=== PATIENT | female | born 1955 | race Two or more races ===

== ENCOUNTER 2018-06-01 12:39 | Emergency (ER) | payer MEDICAID, OTHER ==
[~2018-06-01] VITALS: Ht 152.4 cm; Wt 63.5 kg
[2018-06-01] MEDS ORDERED: UNOBMED (12:54)
[2018-06-01 13:05] VITALS: BP 147/79
[2018-06-01] MEDS ORDERED: Aspirin Baby 81mg ORAL ONE (13:15)
[2018-06-01] MEDS ORDERED: Nitroglycerin Subl 0.4mg tab SL PRN (13:15)
[2018-06-01] MEDS ORDERED: Metoprolol 25mg tab ORAL ONE (13:15)
[2018-06-01 13:39] LABS: EOSINOPHILS % (AUTO) 0.5 % (0.0-3.0); HEMATOCRIT 43.5 % (37.0-47.0); LYMPHOCYTES % (AUTO) 22.7 % (20.0-45.0); MEAN CORPUSCULAR VOLUME 90 FL (80-99); MONOCYTES % (AUTO) 4.8 % (1.0-10.0); NEUTROPHILS % (AUTO) 70.9 % (45.0-75.0); PLATELET COUNT 147 K/UL (150-450); RED BLOOD COUNT 4.86 M/UL (4.20-5.40); RED CELL DISTRIBUTION WIDTH 10.4 % (11.6-14.8); WHITE BLOOD COUNT 7.6 K/UL (4.8-10.8)
[2018-06-01 13:53] VITALS: BP 128/71
[2018-06-01 14:10] LABS: ANION GAP 11 mmol/L (5-15); BLOOD UREA NITROGEN 12 mg/dL (7-18); CALCIUM 8.6 MG/DL (8.5-10.1); CARBON DIOXIDE 24 MMOL/L (21-32); CHLORIDE 100 MMOL/L (98-107); CREATININE 0.9 MG/DL (0.55-1.30); POTASSIUM 3.7 MMOL/L (3.5-5.1); SODIUM 135 MMOL/L (136-145)
[2018-06-01 14:18] LABS: ALANINE AMINOTRANSFERASE 21 U/L (12-78); ALBUMIN 3.9 G/DL (3.4-5.0); ALKALINE PHOSPHATASE 73 U/L (46-116); ASPARTATE AMINO TRANSFERASE 17 U/L (15-37); BILIRUBIN,TOTAL 0.4 MG/DL (0.2-1.0)
--- NOTE | 2018-06-01 14:18 | Diagnostic Imaging Report ---
Indication: Dyspnea Technique: One view of the chest Comparison: none Findings: Lungs and pleural spaces are clear. The heart size is normal. Impression: Negative
[2018-06-01 15:53] VITALS: BP 113/71
--- NOTE | 2018-06-01 16:23 | Emergency Room Report ---
History of Present Illness General Chief Complaint: Dizziness Source: Patient Present Illness HPI Mrs. Chi is a pleasant 62-year-old female with history of hypertension and elevated triglycerides who presents with a one week of lightheadedness left arm numbness. Chest pain and dyspnea developed today. Chest feels heavy moderate severity. . She took baby aspirin today. She previously had been taking amlodipine for hypertension. However after change in diet, her PCP has discontinued this medication. She is unable to recall if she's had previous cardiac evaluation. Allergies: Coded Allergies: No Known Allergies (Unverified , 06/01/18) Patient History Limited by: language barrier - by nursing colleague provided Danish interpretation Past Medical History: HTN, other - elevated triglycerides Pertinent Family History: CVA - mother Social History: Denies: smoking, alcohol use, drug use Social History Narrative lives with family, patient is , patient cleans houses for living Last Menstrual Period: menopause Nursing Documentation-[facility] Hx Hypertension: Yes Review of Systems Constitutional: Reports: malaise; Denies: fever, weakness Neurological: Reports: numbness, paresthesia, tingling; Denies: headache, focal weakness All Other Systems: negative except mentioned in HPI Physical Exam Vital Signs Date Time Temp Pulse Resp B/P (MAP) Pulse Ox O2 Delivery O2 Flow Rate FiO2 06/01/18 12:51 98.6 78 18 176/84 95 Room Air 98.6 Sp02 EP Interpretation: reviewed, normal General Appearance: no apparent distress, alert, GCS 15, non-toxic Head: normocephalic, atraumatic Eyes: bilateral eye normal inspection, bilateral eye PERRL ENT: hearing grossly normal, normal pharynx, no angioedema, normal voice Neck: full range of motion, supple/symm/no masses Respiratory: chest non-tender, lungs clear, normal breath sounds, speaking full sentences Cardiovascular #1: regular rate, rhythm, no edema Cardiovascular #2: 2+ carotid (R), 2+ carotid (L), 2+ radial (R), 2+ radial (L) , 2+ dorsalis pedis (R), 2+ dorsalis pedis (L) Gastrointestinal: normal bowel sounds, non tender, soft, non-distended, no guarding, no rebound Rectal: deferred Musculoskeletal: back normal, gait/station normal, normal range of motion, non- tender Neurologic: alert, oriented x3, responsive, motor strength/tone normal, sensory intact, speech normal Psychiatric: judgement/insight normal, memory normal, mood/affect normal Skin: normal color, no rash, warm/dry, well hydrated Medical Decision Making ER Course Mrs. Chi presents with signs and symptoms of acute coronary syndrome and hypertensive urgency.. I'm concerned for cardiac disease. Our case briefer consulted patient's health insurance claims clerk who arranged MD to MD consultation at [facility]. Patient will be admitted to telemetry at [facility]. Transferred in stable condition. Patient is appropriate for transfer. Patient and daughter agreed for transfer and understand risks alternatives and benefits. I spoke with accepting physician Dr. Malik, Labs Test 06/01/18 13:15 White Blood Count 7.6 K/UL (4.8-10.8) Red Blood Count 4.86 M/UL (4.20-5.40) Hemoglobin 15.0 G/DL (12.0-16.0) Hematocrit 43.5 % (37.0-47.0) Mean Corpuscular Volume 90 FL (80-99) Mean Corpuscular Hemoglobin 30.9 PG (27.0-31.0) Mean Corpuscular Hemoglobin Concent 34.5 G/DL (32.0-36.0) Red Cell Distribution Width 10.4 % (11.6-14.8) Platelet Count 147 K/UL (150-450) Mean Platelet Volume 11.3 FL (6.5-10.1) Neutrophils (%) (Auto) 70.9 % (45.0-75.0) Lymphocytes (%) (Auto) 22.7 % (20.0-45.0) Monocytes (%) (Auto) 4.8 % (1.0-10.0) Eosinophils (%) (Auto) 0.5 % (0.0-3.0) Basophils (%) (Auto) 1.0 % (0.0-2.0) Sodium Level 135 MMOL/L (136-145) Potassium Level 3.7 MMOL/L (3.5-5.1) Chloride Level 100 MMOL/L (98-107) Carbon Dioxide Level 24 MMOL/L (21-32) Anion Gap 11 mmol/L (5-15) Blood Urea Nitrogen 12 mg/dL (7-18) Creatinine 0.9 MG/DL (0.55-1.30) Estimat Glomerular Filtration Rate > 60 mL/min (>60) Glucose Level 115 MG/DL (74-106) Calcium Level 8.6 MG/DL (8.5-10.1) Total Bilirubin 0.4 MG/DL (0.2-1.0) Aspartate Amino Transf (AST/SGOT) 17 U/L (15-37) Alanine Aminotransferase (ALT/SGPT) 21 U/L (12-78) Alkaline Phosphatase 73 U/L (46-116) Troponin I 0.017 ng/mL (0.000-0.056) Pro-B-Type Natriuretic Peptide 72 pg/mL (0-125) Total Protein 8.0 G/DL (6.4-8.2) Albumin 3.9 G/DL (3.4-5.0) Globulin 4.1 g/dL Albumin/Globulin Ratio 1.0 (1.0-2.7) Lab Results Impression labs are within normal limits EKG Diagnostic Results EP Interpretation: rate 70 beats, normalaxis normal intervals no ST-T signs of ischemia Rate: normal Rhythm: NSR ST Segments: no acute changes ASA given to the pt in ED: Yes Chest X-Ray Diagnostic Results Chest X-Ray Diagnostic Results : Chest X-Ray Ordered: Yes # of Views/Limited/Complete: 1 View Indication: Chest Pain Interpretation: no consolidation, no effusion, no pneumothorax, no acute cardiopulmonary disease Electronically Signed by: this image is electronically signed by Dr. Arvizu Last Vital Signs Date Time Temp Pulse Resp B/P (MAP) Pulse Ox O2 Delivery O2 Flow Rate FiO2 06/01/18 15:53 98.6 73 13 113/71 98 Room Air 98.6 Referrals: NON PHYSICIAN (PCP) GWEN SPAIN Jun 01, 2018 16:23
[2018-06-01 17:33] VITALS: BP 126/74
[2018-06-01 18:00] VITALS: BP 126/74
--- NOTE | 2018-06-02 13:36 | Cardiology Report ---
APPROVED REPORT EKG Measurement Heart [id number] Normal sinus rhythm Normal ECG
== END 2018-06-01 18:00 | disposition short-term general hospital (02) ==
LOC: EMR 13:33 → ENRESERV 14:55 → EMR 18:00
DX: R07.9 Chest pain, unspecified (principal); R42 Dizziness and giddiness; R20.0 Anesthesia of skin; I10 Essential (primary) hypertension; Z82.3 Family history of stroke
CPT/HCPCS: 36415; 71045; 80053; 83880; 84484; 85025; 93005; 99284

== ENCOUNTER 2018-11-27 08:43 | Emergency (ER) | payer OTHER ==
[~2018-11-27] VITALS: Ht 154.9 cm; Wt 63.5 kg
[~2018-11-27 08:43] MED LIST: UNOBMED
--- NOTE | 2018-11-27 08:52 | NUR ---
ED Nurse Note: waiting for pt's daughter to send the pt's medication list
[2018-11-27 09:00] VITALS: BP 135/70
--- NOTE | 2018-11-27 09:00 | NUR ---
ED Nurse Note: Pt present at ER from home with daughter. Cameroonian speaker but is able to make a need in Thai and daugther speakes Thai. pt aao x4 and reported non-radiating abdominal pain 05/02. per pt, pt started having N/V/D since but it got worse this morning. last time vomit was . Diarrhea and Nausea is still going on. skin clean and intact. no vomiting or diarrhea since arrival at ER.
[2018-11-27 09:31] LABS: APPEARANCE,URINE CLEAR; BILIRUBIN, URINE NEGATIVE (NEGATIVE); COLOR,URINE PALE YELLOW; GLUCOSE, URINE (UA) NEGATIVE (NEGATIVE); KETONES,URINE NEGATIVE (NEGATIVE); LEUKOCYTE ESTERASE ,URINE NEGATIVE (NEGATIVE); NITRITE,URINE NEGATIVE (NEGATIVE); PH,URINE 7 (4.5-8.0); PROTEIN,URINE NEGATIVE (NEGATIVE); UROBILINOGEN,URINE NORMAL MG/DL (0.0-1.0)
[2018-11-27 09:45] LABS: BASOPHILS % (AUTO) 0.9 % (0.0-2.0); EOSINOPHILS % (AUTO) 1.4 % (0.0-3.0); HEMATOCRIT 42.9 % (37.0-47.0); LYMPHOCYTES % (AUTO) 30.8 % (20.0-45.0); MEAN CORPUSCULAR VOLUME 92 FL (80-99); MONOCYTES % (AUTO) 4.5 % (1.0-10.0); NEUTROPHILS % (AUTO) 62.4 % (45.0-75.0); PLATELET COUNT 122 K/UL (150-450); RED BLOOD COUNT 4.68 M/UL (4.20-5.40)
[2018-11-27] MEDS ORDERED: Sodium Chloride 1,900 ML IVLG ONE (09:45)
[2018-11-27] MEDS ORDERED: Isovue-300 100ml vial INJ PRN (09:45)
--- NOTE | 2018-11-27 09:50 | Emergency Room Report ---
History of Present Illness General Chief Complaint: Abdominal Pain Source: Patient Present Illness HPI This patient is accompanied by her daughter. The patient states that 5 days ago she developed nausea, vomiting and diarrhea. She is continued to have diarrhea for the past 5 days. She has had nausea but denies any further vomiting. She also complains of generalized weakness and fatigue. She also complains of epigastric and mid abdominal pain. She denies fever or chills. She denies cough or congestion. She denies dysuria or hematuria. She denies travel out of the country. She denies bloody stool. She has no other complaints. Allergies: Coded Allergies: No Known Allergies (Unverified , 11/27/18) Patient History Past Medical History: see triage record, HTN, other - vertigo, HLP Social History: Denies: smoking, alcohol use, drug use Reviewed Nursing Documentation: PMH: Agreed; PSxH: Agreed Nursing Documentation-PM Past Medical History: No History, Except For Hx Hypertension: Yes Review of Systems All Other Systems: negative except mentioned in HPI Physical Exam Vital Signs Date Time Temp Pulse Resp B/P (MAP) Pulse Ox O2 Delivery O2 Flow Rate FiO2 11/27/18 08:48 98.2 79 16 161/75 97 Room Air 11/27/18 09:00 100 Sp02 EP Interpretation: reviewed, normal General Appearance: no apparent distress, alert, GCS 15, non-toxic Head: normocephalic, atraumatic Eyes: bilateral eye normal inspection, bilateral eye PERRL ENT: hearing grossly normal, normal pharynx, no angioedema, normal voice Neck: full range of motion, supple/symm/no masses Respiratory: chest non-tender, lungs clear, normal breath sounds, no respiratory distress, no retraction, no accessory muscle use, speaking full sentences Cardiovascular #1: regular rate, rhythm, no edema Gastrointestinal: normal bowel sounds, soft, non-distended, no guarding, no rebound, tenderness - TTP in the epigastrium, RUQ and LUQ Rectal: deferred Musculoskeletal: back normal, gait/station normal, normal range of motion, non- tender Neurologic: alert, oriented x3, responsive, motor strength/tone normal, sensory intact, speech normal Psychiatric: judgement/insight normal, memory normal, mood/affect normal, no suicidal/homicidal ideation Skin: normal color, no rash, warm/dry, well hydrated Medical Decision Making Diagnostic Impression: Primary Impression: Gastroenteritis ER Course This patient has a clinical presentation consistent with gastroenteritis/ gastritis. The patient's abdominal exam was benign, but given the patient's age I did obtain a CT of the abdomen and pelvis which showed no acute findings. I do not suspect cholecystitis, pancreatitis, appendicitis or diverticulitis based on history and physical, CT findings and laboratory workup. This is likely viral in etiology. The patient is nontoxic and nonsurgical at this time. Patient was given IV fluids, nausea medication and IV pepcid to treat gastritis. The patient was given return precautions and followup instructions. Laboratory Tests Test 11/27/18 09:11 White Blood Count 6.0 K/UL (4.8-10.8) Red Blood Count 4.68 M/UL (4.20-5.40) Hemoglobin 15.0 G/DL (12.0-16.0) Hematocrit 42.9 % (37.0-47.0) Mean Corpuscular Volume 92 FL (80-99) Mean Corpuscular Hemoglobin 32.1 PG (27.0-31.0) H Mean Corpuscular Hemoglobin Concent 35.0 G/DL (32.0-36.0) Red Cell Distribution Width 11.0 % (11.6-14.8) L Platelet Count 122 K/UL (150-450) L Mean Platelet Volume 11.0 FL (6.5-10.1) H Neutrophils (%) (Auto) 62.4 % (45.0-75.0) Lymphocytes (%) (Auto) 30.8 % (20.0-45.0) Monocytes (%) (Auto) 4.5 % (1.0-10.0) Eosinophils (%) (Auto) 1.4 % (0.0-3.0) Basophils (%) (Auto) 0.9 % (0.0-2.0) Urine Color Pale yellow Urine Appearance Clear Urine pH 7 (4.5-8.0) Urine Specific [place] 1.005 (1.005-1.035) Urine Protein Negative (NEGATIVE) Urine Glucose (UA) Negative (NEGATIVE) Urine Ketones Negative (NEGATIVE) Urine Blood Negative (NEGATIVE) Urine Nitrite Negative (NEGATIVE) Urine Bilirubin Negative (NEGATIVE) Urine Urobilinogen Normal MG/DL (0.0-1.0) Urine Leukocyte Esterase Negative (NEGATIVE) Sodium Level 142 MMOL/L (136-145) Potassium Level 3.7 MMOL/L (3.5-5.1) Chloride Level 105 MMOL/L (98-107) Carbon Dioxide Level 27 MMOL/L (21-32) Anion Gap 10 mmol/L (5-15) Blood Urea Nitrogen 14 mg/dL (7-18) Creatinine 0.9 MG/DL (0.55-1.30) Estimate Glomerular Filtration Rate > 60 mL/min (>60) Glucose Level 105 MG/DL (74-106) Calcium Level 9.2 MG/DL (8.5-10.1) Total Bilirubin 0.4 MG/DL (0.2-1.0) Aspartate Amino Transferase (AST) 17 U/L (15-37) Alanine Aminotransferase (ALT) 25 U/L (12-78) Alkaline Phosphatase 82 U/L (46-116) Troponin I 0.006 ng/mL (0.000-0.056) Total Protein 7.8 G/DL (6.4-8.2) Albumin 3.9 G/DL (3.4-5.0) Globulin 3.9 g/dL Albumin/Globulin Ratio 1.0 (1.0-2.7) Lipase 104 U/L (73-393) EKG Diagnostic Results Rate: normal ST Segments: no acute changes Rhythm Strip Diag. Results EP Interpretation: yes Rate: 70's Rhythm: NSR, no PVC's, no ectopy CT/MRI/US Diagnostic Results CT/MRI/US Diagnostic Results : Imaging Test Ordered: CT abd/pelvis Impression See official report and electronic medical record. No acute findings. Normal appendix. Last Vital Signs Date Time Temp Pulse Resp B/P (MAP) Pulse Ox O2 Delivery O2 Flow Rate FiO2 11/27/18 09:00 70 17 Room Air 100 11/27/18 09:00 98.2 135/70 100 Status: improved Disposition: HOME, SELF-CARE Condition: Improved Referrals: [facility],REFERR[facility] (PCP) Patient Instructions: Abdominal Pain, Adult Hannah Dunn DO Nov 27, 2018 09:50
[2018-11-27 09:51] LABS: ANION GAP 10 mmol/L (5-15); BLOOD UREA NITROGEN 14 mg/dL (7-18); CALCIUM 9.2 MG/DL (8.5-10.1); CARBON DIOXIDE 27 MMOL/L (21-32); CHLORIDE 105 MMOL/L (98-107); CREATININE 0.9 MG/DL (0.55-1.30); POTASSIUM 3.7 MMOL/L (3.5-5.1); SODIUM 142 MMOL/L (136-145)
[2018-11-27 09:56] LABS: ALANINE AMINOTRANSFERASE 25 U/L (12-78); ALBUMIN 3.9 G/DL (3.4-5.0); ALKALINE PHOSPHATASE 82 U/L (46-116); ASPARTATE AMINO TRANSFERASE 17 U/L (15-37); BILIRUBIN,TOTAL 0.4 MG/DL (0.2-1.0)
--- NOTE | 2018-11-27 10:00 | NUR ---
ED Nurse Note: pt reported that she is allergic to shrimp. md made aware and received verbal order to still do CT with contrast. family informed and agreed with it.
--- NOTE | 2018-11-27 10:55 | Diagnostic Imaging Report ---
Indication: Abdominal pain Technique: Continuous helical transaxial imaging of the abdomen and pelvis was obtained from the lung bases to the pubic symphysis during intravenous contrast administration. Coronal 2-D reformats were also obtained. Study obtained in a Siemens sensation [address] Automatic Exposure Control was utilized. Total Dose length Product (DLP): 714.[address] Dose Index Volume (CTDIvol): 15.03 mGy Comparison: None Findings: Lung bases are clear. Small hiatal hernia noted. Gallbladder is unremarkable. The spleen and liver, pancreas and kidneys are unremarkable. No free fluid identified. Appendix is normal. No evidence of bowel obstruction. Uterus is absent. Urinary bladder is unremarkable. There is narrowing of intervertebral discs and accompanying endplate osteophyte formation especially L4-5. Hypertrophied facet joints also demonstrated.. IMPRESSION: No acute findings. Normal appendix. Status post hysterectomy Degenerative disc disease at L4-[address] scanner at [facility] is accredited by the [employer] and the scans are performed using dose optimization techniques as appropriate to a performed exam including Automatic Exposure control.
--- NOTE | 2018-11-27 10:56 | NUR ---
ED Nurse Note: pt ambulated to bathroom with RN's assist for urination and came back in stable condition.
[2018-11-27] MEDS ORDERED: MAALOX MAXIMUM355 M1 PO (11:12)
[2018-11-27] MEDS ORDERED: PEPCID AC20 M2 PO (11:12)
[2018-11-27 11:25] VITALS: BP 107/77
--- NOTE | 2018-11-27 11:27 | NUR ---
ED Nurse Note: pt was cleared to be discharged by ERMD. pt and her daughter at bedside received prescriptions and discharge instruction and verbalized understanding. pt ambulated to be discharged. id band and iv were removed.
--- NOTE | 2018-11-28 13:46 | Cardiology Report ---
APPROVED REPORT EKG Measurement Heart [id number] [place] [id number] [id number] Normal sinus rhythm Normal ECG
== END 2018-11-27 11:28 | disposition home or self-care (01) ==
LOC: EMR 09:31
DX: K52.9 Noninfective gastroenteritis and colitis, unspecified (principal); I10 Essential (primary) hypertension
CPT/HCPCS: 36415; 74177; 80053; 81003; 83690; 84484; 85025; 93005; 96361; 96374; 99284; J2405; Q9967

== ENCOUNTER 2019-08-02 11:35 | Emergency (ER) | payer OTHER ==
[~2019-08-02] VITALS: Ht 157.5 cm; Wt 63.5 kg
[~2019-08-02 11:35] MED LIST changes: +MAALOX MAXIMUM355 M1 PO; +PEPCID AC20 M2 PO
[2019-08-02] MEDS ORDERED: HYDROCHLOROTH12.5 M2 ORAL (11:45)
[2019-08-02] MEDS ORDERED: VERTICALM25 MG ORAL (11:45)
[2019-08-02 11:50] VITALS: BP 143/83
--- NOTE | 2019-08-02 11:50 | NUR ---
Note undone in EDM - 08/02/19 at 1253 by BPARENTELA ED Nurse Note: Pt walked in ED c/o of headache 8/10 on pain scale since yesterday 1100am. BP 143/73. C/O of nausea and dizziness but no vomitting. Placed patient on cardiac rehab nurse. Daughter at bedside.
--- NOTE | 2019-08-02 11:50 | NUR ---
ED Nurse Note: Pt walked in ED c/o of headache 8/10 on pain scale since yesterday 1100am. BP 143/73. C/O of nausea and dizziness but no vomitting. patient reports her pain "all around her head" patient denies any blurred vision at this time, patient is accomapnied by her daughter, denies any nausea or vomiting. patient placed in a monitor worker, IV started on left hand 18 gauge and right hand 20 gauge, will continue to monitor
[2019-08-02] MEDS ORDERED: Metoclopramide 10mg/2ml Inj IVP ONE (12:15)
[2019-08-02] MEDS ORDERED: DiphenhydrAMINE 50mg/ml Inj IVP ONE (12:15)
[2019-08-02] MEDS ORDERED: Ketorolac 30mg Inj IV ONE (12:15)
[2019-08-02 13:13] LABS: BASOPHILS % (AUTO) 0.8 % (0.0-2.0); EOSINOPHILS % (AUTO) 0.2 % (0.0-3.0); HEMATOCRIT 43.9 % (37.0-47.0); HEMOGLOBIN 15.4 G/DL (12.0-16.0); MEAN CORPUSCULAR VOLUME 90 FL (80-99); MONOCYTES % (AUTO) 6.5 % (1.0-10.0); NEUTROPHILS % (AUTO) 62.5 % (45.0-75.0); PLATELET COUNT 165 K/UL (150-450); RED BLOOD COUNT 4.87 M/UL (4.20-5.40); RED CELL DISTRIBUTION WIDTH 10.5 % (11.6-14.8); WHITE BLOOD COUNT 7.1 K/UL (4.8-10.8)
[2019-08-02 13:25] LABS: ANION GAP 8 mmol/L (5-15); BLOOD UREA NITROGEN 13 mg/dL (7-18); CALCIUM 9.1 MG/DL (8.5-10.1); CARBON DIOXIDE 28 MMOL/L (21-32); CHLORIDE 101 MMOL/L (98-107); CREATININE 0.7 MG/DL (0.55-1.30); POTASSIUM 3.3 MMOL/L (3.5-5.1); SODIUM 137 MMOL/L (136-145)
--- NOTE | 2019-08-02 13:30 | NUR ---
ED Nurse Note: Patient on gurney. No signs of distress noted. Family at bedside.
[2019-08-02 13:39] LABS: ALANINE AMINOTRANSFERASE 22 U/L (12-78); ALBUMIN 3.8 G/DL (3.4-5.0); ALBUMIN/GLOBULIN RATIO 0.9 (1.0-2.7); ALKALINE PHOSPHATASE 86 U/L (46-116); ASPARTATE AMINO TRANSFERASE 19 U/L (15-37); BILIRUBIN,TOTAL 0.4 MG/DL (0.2-1.0); CKMB < 0.5 NG/ML (0.0-3.6); CREATINE KINASE 53 U/L (26-308)
--- NOTE | 2019-08-02 14:42 | Emergency Room Report ---
History of Present Illness General Chief Complaint: Headache Source: Patient Present Illness HPI Patient presents emergency department today complaint of a headache. Patient states that she developed the onset of headache since yesterday with worsening pain on the left side of face associate some numbness and tearing of the left eye. She denies any shortness of breath. Patient reports prior CVA work-up that was negative. Symptoms noted to be moderate. No other modifying factors. No other associated signs and symptoms. No other complaints were noted. Allergies: Coded Allergies: No Known Allergies (Unverified , 11/27/18) Patient History Past Medical History: HTN Past Surgical History: none Pertinent Family History: none Social History: Denies: smoking, alcohol use, drug use Last Menstrual Period: 15 YEARS AGO Now: No Reviewed Nursing Documentation: PMH: Agreed; PSxH: Agreed Nursing Documentation-PMH Past Medical History: No History, Except For Hx Hypertension: Yes Review of Systems All Other Systems: negative except mentioned in HPI Physical Exam Vital Signs Date Time Temp Pulse Resp B/P (MAP) Pulse Ox O2 Delivery O2 Flow Rate FiO2 08/02/19 11:40 99.0 80 16 153/77 (102) 97 Room Air Sp02 EP Interpretation: reviewed, normal General Appearance: normal inspection, well appearing, no apparent distress, alert Head: atraumatic Eyes: bilateral eye normal inspection ENT: normal ENT inspection, hearing grossly normal, normal voice Neck: normal inspection, full range of motion, supple, no bony tend Respiratory: normal inspection, lungs clear, normal breath sounds, no respiratory distress, no retraction, no wheezing Cardiovascular #1: regular rate, rhythm, no edema Gastrointestinal: normal inspection, normal bowel sounds, non tender, soft, no guarding, no hernia Genitourinary: no CVA tenderness Musculoskeletal: normal inspection, back normal, normal range of motion Neurologic: normal inspection, alert, responsive, speech normal Psychiatric: normal inspection, judgement/insight normal, mood/affect normal Skin: no rash Medical Decision Making Diagnostic Impression: Primary Impression: Dizziness ER Course Patient presents emergency department today complaining headache. Differential considerations include CVA, migraine headache, electrolyte abnormality just name few. Given the severity of the patient's presentation I felt this is a highly complex patient. This patient required extensive workup. Patient laboratory work-up is negative. But given patient's risk factors and history of CVA worsening dizziness patient require head CT which is noted to be negative. Patient was given medications fluids and felt much better. Given the patient feels much better, and he had a negative workup, I feel the patient can be discharged home. Patient is advised to follow up with primary doctor in 2-3 days and return the emergency room for any worsening symptoms and as needed. Labs Test 08/02/19 12:20 White Blood Count 7.1 K/UL (4.8-10.8) Red Blood Count 4.87 M/UL (4.20-5.40) Hemoglobin 15.4 G/DL (12.0-16.0) Hematocrit 43.9 % (37.0-47.0) Mean Corpuscular Volume 90 FL (80-99) Mean Corpuscular Hemoglobin 31.5 PG (27.0-31.0) Mean Corpuscular Hemoglobin Concent 35.0 G/DL (32.0-36.0) Red Cell Distribution Width 10.5 % (11.6-14.8) Platelet Count 165 K/UL (150-450) Mean Platelet Volume 9.1 FL (6.5-10.1) Neutrophils (%) (Auto) 62.5 % (45.0-75.0) Lymphocytes (%) (Auto) 30.0 % (20.0-45.0) Monocytes (%) (Auto) 6.5 % (1.0-10.0) Eosinophils (%) (Auto) 0.2 % (0.0-3.0) Basophils (%) (Auto) 0.8 % (0.0-2.0) Sodium Level 137 MMOL/L (136-145) Potassium Level 3.3 MMOL/L (3.5-5.1) Chloride Level 101 MMOL/L (98-107) Carbon Dioxide Level 28 MMOL/L (21-32) Anion Gap 8 mmol/L (5-15) Blood Urea Nitrogen 13 mg/dL (7-18) Creatinine 0.7 MG/DL (0.55-1.30) Estimat Glomerular Filtration Rate > 60 mL/min (>60) Glucose Level 95 MG/DL (74-106) Calcium Level 9.1 MG/DL (8.5-10.1) Total Bilirubin 0.4 MG/DL (0.2-1.0) Aspartate Amino Transf (AST/SGOT) 19 U/L (15-37) Alanine Aminotransferase (ALT/SGPT) 22 U/L (12-78) Alkaline Phosphatase 86 U/L (46-116) Total Creatine Kinase 53 U/L (26-308) Creatine Kinase MB < 0.5 NG/ML (0.0-3.6) Creatine Kinase MB Relative Index 0.9 Troponin I 0.000 ng/mL (0.000-0.056) Total Protein 8.1 G/DL (6.4-8.2) Albumin 3.8 G/DL (3.4-5.0) Globulin 4.3 g/dL Albumin/Globulin Ratio 0.9 (1.0-2.7) EKG Diagnostic Results Rate: normal Rhythm: NSR ST Segments: no acute changes Rhythm Strip Diag. Results EP Interpretation: yes Rate: 76 Rhythm: NSR, no PVC's, no ectopy Last Vital Signs Date Time Temp Pulse Resp B/P (MAP) Pulse Ox O2 Delivery O2 Flow Rate FiO2 08/02/19 11:50 98.3 73 18 143/83 98 Room Air Status: improved Disposition: HOME, SELF-CARE Condition: Stable Referrals: [facility],REFERR[facility] (PCP) Alexander Jenkins MD Aug 02, 2019 14:42
--- NOTE | 2019-08-02 14:49 | Diagnostic Imaging Report ---
Indications: Headache 8 out of 10 Technique: Spiral acquisitions obtained through the brain. Angled axial and coronal 5 x 5 mm slices were reconstructed. Total dose length product 1244 mGycm. CTDI vol(s) 60 mGy. Dose reduction achieved using automated exposure control Comparison: 08/02/2019 Findings: Images are limited due to images noise. No acute intracranial hemorrhage or edema, mass effect, nor midline shift. There is mild periventricular deep white matter low-attenuation, consistent with chronic microvascular ischemic change Normal randolph-white differentiation. Intact calvarium. The mastoids are clear. Visualized orbits and sinuses are unremarkable. Impression: Mild involutional changes, as described Negative for acute intracranial bleed or mass effect The CT scanner at [facility] is accredited by the [employer] and the scans are performed using protocols designed to limit radiation exposure to as low as reasonably achievable to attain images of sufficient resolution adequate for diagnostic evaluation.
[2019-08-02 16:00] VITALS: BP 145/85
--- NOTE | 2019-08-02 16:00 | NUR ---
ER DISCHARGE NOTE: Patient is cleared to be discharged per ERMD, pt is aox4, on room air, with stable vital signs. pt was given dc and prescription instructions, pt was able to verbalize understanding, pt id band and iv site removed without complications. pt is able to ambulate with steady gait. pt took all belongings.
--- NOTE | 2019-08-04 17:36 | Cardiology Report ---
APPROVED REPORT EKG Measurement Heart [id number] [id number] Normal sinus rhythm T wave abnormality, consider anterior ischemia Abnormal ECG
== END 2019-08-02 16:00 | disposition home or self-care (01) ==
LOC: EMR 12:20
DX: R42 Dizziness and giddiness (principal); R51 Headache; I10 Essential (primary) hypertension
CPT/HCPCS: 36415; 70450; 80053; 82550; 82553; 84484; 85025; 93005; 96361; 96374; 96375; 99284; J1200; J1885; J2765; J7030